=== PATIENT | male | born 1945 | race Caucasian/White ===

== ENCOUNTER 2020-03-18 08:40 | Day surgery (SDC) | payer MEDICARE, SELFPAY ==
[2020-03-18] VITALS (8 sets, daily range): BP systolic 90–105; BP diastolic 52–65; PULSE 63–83; RESP 12–21; TEMP 36.4–36.5; O2SAT 95–100; BMI 22.4
--- NOTE | 2020-03-18 | PATH_ITS ---
[facility] Accession Number: [id number] . 01 Material submitted: . PART A: colon - SMALL POLYP AT 85 CM PART B: colon - 25 CM SMALL POLYP PART C: colon - POLYP AT 15 CM . 01 Clinical history: . SCREENING COLONOSCOPY . 02 Diagnosis: A. Colon, Polyp at 85 cm, Biopsy: Tubular adenoma. . B. Colon, 25 cm, Small Polyp, Biopsy: Tubular adenoma. Prominent lymphoid aggregate. Please see comment. . C. Colon, Polyp at 15 cm, Biopsy: Tubular adenoma. MRV 03/21/2020 0926 Local . 02 Comment: B. Underlying the tubular adenoma at 25 cm is a prominent lymphoid aggregate. The patient's clinical history is noted. This case will be forwarded to a hematopathologist for review and their results reported as an addendum. . 02 Electronically signed: . Gabbi Pham MD, Pathologist NPI- [id number] . 01 Gross description: . Part A: SMALL POLYP AT 85 CM: Received in formalin is 1 fragment(s) of wade, soft tissue measuring 0.3 x 0.3 x 0.1 cm submitted entirely in 1 cassette(s) Part B: 25 CM SMALL POLYP: Received in formalin is 1 fragment(s) of wade, soft tissue measuring 0.2 x 0.2 x 0.2 cm submitted entirely in 1 cassette(s) Part C: POLYP AT 15 CM: Received in formalin is 1 fragment(s) of wade, soft tissue measuring 0.3 x 0.3 x 0.2 cm submitted entirely in 1 cassette(s) /QBJ 03/19/2020 0748 Local . 02 Pathologist provided ICD-10: D12.6 . 02 CPT . 627274, 192812, 194228 Performed at: 01 [facility] [address] [place] [address], [place], [place] [id number] MD Zbigniew Fox MD Phone: [phone] Performed at: 02 [facility] [address] [place], [place] [id number] MD Gabbi Pham MD Phone: [phone]
[2020-03-18] MEDS: SODIUM CHLORIDE 0.9% 1,000 ML 200 ML IV (09:00)
--- NOTE | 2020-03-18 10:06 | PM.HP.1 ---
History of Present Illness History of Present Illness Date Patient Seen: 03/18/20 Time Patient Seen: 10:06 Chief complaint: SCREENING COLONOSCOPY Narrative: This is a 74-year-old man with history of atrial fibrillation and DVTs. He is chronically on Coumadin, and has stopped his Coumadin 5 days ago. His INR is 1.2 this morning. He denies any symptoms of unexplained abdominal pain unexplained weight loss melena or hematochezia. He had a prior colonoscopy 5 years ago which he was told was normal. He believes he has some polyps found may be on a previous colonoscopy 5 years prior to that. He denies any primary relatives with colon cancer colon polyps. ROS: Thirteen system review is otherwise negative other than as mentioned below and in HPI. PE: GENERAL: Well groomed and cooperative. Appears stated age. Answers questions promptly and appropriately. Vital signs noted. HENT: Normocephalic, atraumatic. Hearing intact. EYES: Conjunctiva pink, sclera white, no periorbital swelling. CARDIOVASCULAR: Regular rate. No pedal edema. RESPIRATORY: Non-tachypneic, breathing comfortably on room air. GASTROINTESTINAL: Abdomen soft and non-distended GENITALURINARY: No flank tenderness. MUSCULOSKELETAL: Equal tone and mass bilaterally. SKIN: Warm, dry, soft, appropriate color for ethnicity. No other lesions, rashes, or wounds. NEURO: Alert and Oriented X 3. No gross sensory deficits, or cognitive issues. PSYCH: Appropriate affect and mood. Patient History Medical History Atrial fibrillation (Acute) DVT (deep venous thrombosis) (Acute) GI bleeding (Acute) History of thyroid nodule (Acute) Idiopathic cardiomyopathy (Acute) Surgical History H/O exploratory laparotomy (Acute) Family & Social History Family History Brother Age: 65 Gout Grandfather Heart disease Grandmother Diabetes mellitus Social History: household members spouse Tobacco & Substance use: Smoking Status Never smoker alcohol intake current alcohol intake frequency a few times a week Substance Use Type does not use Meds Home Medications and Allergies Home Medications Medication Instructions Recorded Confirmed Type metoprolol succinate 50 mg PO QDAY #30 ter 02/23/16 03/18/20 History atorvastatin [Lipitor] 20 mg PO HS #90 tab 01/28/17 03/18/20 Rx losartan 25 mg PO DAILY 12/07/19 03/18/20 History warfarin [Coumadin] 7.5 mg PO QDAY 01/04/20 03/18/20 History Allergies Allergy/AdvReac Type Severity Reaction Status Date / Time dextran 40 [DEXTRAN 40] Allergy Severe breathing Verified 03/18/20 08:53 difficulty Exam Vital Signs (past 8 hours): - 03/18/20 09:00 Temperature 97.5 F L Pulse Rate 80 Respiratory Rate 14 Blood Pressure 105/62 Pulse Oximetry 98 Oxygen Delivery Method Room Air Assessment & Plan Assessment and plan (1) History of colonic polyps: Status: None Assessment & Plan narrative: Risks and benefits of screening colonoscopy and possible polypectomy were discussed with the patient including risk of bleeding, perforation, need for additional procedures, risks of anesthesia. The patient desires to proceed with the colonoscopy procedure. COVID-19 COVID-19 status: Negative Result date/Date tested (Pos, Neg/Pending): 03/15/20 Time Spent With Patient Time with patient: 15-24 minutes Quality VTE Deep Vein Thrombosis/Pulmonary Embolism Present on Admission: No
--- NOTE | 2020-03-18 10:09 | P.OP.ENDO_ITS ---
Operative Date/Time/Diagnoses Date of procedure: 03/18/20 Time of procedure: 10:09 Pre-op diagnosis: Personal history of colon polyps Post-op diagnosis: other (Three small polyps that) Procedure & Clinicians Study performed: Colonoscopy Procedural sedation performed by the endoscopy Polypectomy x3 with cold forceps Same procedure as scheduled: Yes Indications: 74-year-old man with personal history of colon polyps Surgeon: Cathy Brandt Procedure Notes SCOAP/Timeout: Performed Procedure in detail: The patient was brought to the room and placed in left lateral decubitus position with all bony prominences padded. A time-out was performed and then the patient was given procedural sedation starting with 4 mg of Versed and 100 mcg of fentanyl. Vitals were monitored throughout the procedure and remained stable. Once adequately sedated, the procedure was begun. A rectal exam was performed revealing no abnormalities. The colonoscope was then introduced to the rectum and advanced to the cecum in the usual fashion. The cecum was identified by the appendiceal orifice, the mucosal tri- fold, and the ileocecal valve. The scope was then retracted while rotating side to side and examining each mucosal fold. On retraction of the scope 3 small polyps were found 185 cm 1 at 25 cm and 1 at 15 cm. All removed with cold forceps. At the conclusion of the procedure retroflexion was performed and small grade 1-2 internal hemorrhoids without stigmata of bleeding were seen. The scope was then withdrawn from the rectum the procedure was concluded. The patient tolerated the procedure well and was transferred to the PACU in stable condition. Scope withdrawal time: 12 Sedation minutes: 20 Findings: polyp (Three small polyp) Specimen(s): other (Polyp from 85 cm, 20 cm, 15 cm) Complications: none Impression: Three small polyps Post-procedure Recommendations: Other recommendation (Follow-up colonoscopy recommended will depend on pathology of polyps removed) Follow up: weeks Disposition: PACU
[2020-03-18] MEDS: MIDAZOLAM 5 MG/5 ML VIAL IV (10:12)
[2020-03-18] MEDS: fentaNYL 250 MCG/5 ML INJ IV (10:12)
--- NOTE | 2020-03-18 11:09 | SUR.PHASEII ---
Reviewed d\c instructionw with patient. Pt denies pain/nausea. Tolerating po.
== END 2020-03-18 11:35 | disposition home or self-care (01) ==
PROVIDERS: PCP Family Medicine; Referring Provider Family Medicine; Visit Provider Surgery
PROC: 0DJD8ZZ Inspection of Lower Intestinal Tract, Via Natural or Artificial Opening Endoscopic (ICD-10-PCS; CPT 45378; principal; 2020-03-18 10:00)
DX: Z12.11 Encounter for screening for malignant neoplasm of colon (principal); Z86.010 Personal history of colon polyps; K64.0 First degree hemorrhoids; D12.6 Benign neoplasm of colon, unspecified
CPT/HCPCS: 45380; 99152; J2250; J3010

== ENCOUNTER → 2021-01-20 13:57 | Outpatient (CLI) | payer MEDICARE, SELFPAY ==
--- NOTE | 2021-01-20 13:58 | DI.CT.S_ITS ---
PROCEDURE: CT ABDOMEN PELVIS W CON INDICATIONS: CLL, anus squamous cell carcinoma TECHNIQUE: After the administration of oral and intravenous contrast, axial sections were acquired from the lung bases to the pubic symphysis. Coronal and sagittal reformats were performed. For radiation dose reduction, the following was used: automated exposure control, adjustment of mA and/or kV according to patient size. COMPARISON:[facility], [place], ABDOMEN/PELVIS WITH CONTRAST, 08/17/2009, 9:27. FINDINGS: Image quality: Excellent. Lung bases: Coarse calcifications at the left lung base. Heart: No significant findings. ABDOMEN: Liver: Scattered punctate calcifications present throughout the liver. Gallbladder: Unremarkable. Biliary ducts: Unremarkable. Pancreas: Unremarkable. Spleen: The spleen is enlarged measuring 14.9 x 14.1 cm and contains several scattered punctate calcifications. Adrenal Glands: Unremarkable. Kidneys and Ureters: Unremarkable. Stomach and Bowel: Surgical changes at the GE junction. Stomach, small bowel, and colon are within normal limits. Along the right aspect of the anal opening, there is diffuse masslike thickening of the skin measuring about 2.1 x 4.2 cm, potentially patient's primary tumor. Peritoneum: No abnormal intraperitoneal fluid. No free air. Ventral Wall: No hernia. Abdominal Nodes: There are several bulky periaortic retroperitoneal nodes surrounding the renal vasculature, in the portacaval region, and in the peripancreatic region. Bulky adenopathy is seen distally in the retroperitoneum adjacent to the iliac bifurcation. Vessels: The aorta is normal caliber, mildly atherosclerotic, and tortuous. There is interruption of the inferior vena cava at the L2-3 level. Collateral vasculature is seen. PELVIS: Pelvic Organs: Unremarkable. Bladder: Unremarkable. Pelvic Nodes: Extensive left inguinal adenopathy. Enlarged right inguinal lymph node. Possible small lymph nodes in the perirectal region, though not well distinguished from extensive varicosities. Miscellaneous: Prominent left varicocele. Extensive presacral , perirectal varicosities Bones: Severe degenerative disc height loss at L5-S1. No suspicious bone lesions. IMPRESSION: 1. Development of splenomegaly and retroperitoneal adenopathy, likely recurrence of CLL. 2. Inguinal adenopathy and possible perirectal/presacral lymph nodes are present, though etiology is difficult to distinguish, anal squamous cell carcinoma versus CLL. 3. Probable primary squamous cell tumor at the right anal skin surface. Dictated by: Shirin Recio M.D. on 01/20/2021 at 16:36 Approved by: Shirin Recio M.D. on 01/20/2021 at 16:50
== END ==
PROVIDERS: PCP Family Medicine; Referring Provider Internal Medicine Hematology & Oncology; Visit Provider Internal Medicine Hematology & Oncology
DX: C91.10 Chronic lymphocytic leukemia of B-cell type not having achieved remission (principal); C44.520 Squamous cell carcinoma of anal skin; R59.1 Generalized enlarged lymph nodes
CPT/HCPCS: 74177; Q9967

== ENCOUNTER 2021-02-08 13:00 | Day surgery (SDC) | payer MEDICARE, SELFPAY ==
[2021-02-03 07:41] VITALS: BMI 22.5
[2021-02-08] VITALS (7 sets, daily range): BP systolic 104–110; BP diastolic 49–67; PULSE 71–88; RESP 12–18; TEMP 36.3–36.6; O2SAT 95–99; BMI 22.5
--- NOTE | 2021-02-08 | DI.RAD.S_ITS ---
PROCEDURE: XR CHEST 1V INDICATIONS: POST OP PORT PLACEMENT TECHNIQUE: One view of the chest was acquired. COMPARISON: None. FINDINGS: Surgical changes and devices: Port-A-Cath, tip of which projects to the superior vena cava. GE junction region clips. Lungs and pleura: Lungs are clear. No pleural effusions or pneumothorax. Mediastinum: Mediastinal contours appear normal. Calcified right hilar lymph nodes consistent with chronic granulomatous disease. Heart size is normal. Bones and chest wall: No suspicious bony lesions. Overlying soft tissues appear unremarkable. IMPRESSION: Port-A-Cath tip projects to superior vena cava. Dictated by: Eleno Schneider M.D. on 02/08/2021 at 16:18 Approved by: Eleno Schneider M.D. on 02/08/2021 at 16:18
[2021-02-08] MEDS: LACTATED RINGERS 1,000 ML 100 ML IV (14:27)
--- NOTE | 2021-02-08 14:35 | PM.HP.1 ---
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 He is about to begin radiation chemotherapy and I was asked plea support. Patient History Medical History Atrial fibrillation CLL (chronic lymphocytic leukemia) DVT (deep venous thrombosis) GI bleeding History of thyroid nodule Idiopathic cardiomyopathy Pneumonia Surgical History H/O exploratory laparotomy (1974) History of surgery (1972) History of surgery (1974) Family & Social History Family History Brother Age: 66 Gout Grandfather Heart disease Grandmother Diabetes mellitus Social History: household members spouse Tobacco & Substance use: Smoking Status Never smoker alcohol intake current alcohol intake frequency a few times a week Substance Use Type does not use Meds Home Medications and Allergies Home Medications Medication Instructions Recorded Confirmed Type metoprolol succinate 50 mg 50 mg PO QDAY #30 ter 02/23/16 02/08/21 History tablet,extended release 24 hr atorvastatin 20 mg tablet (Lipitor) 20 mg PO HS #90 tab 01/28/17 02/08/21 Rx losartan 25 mg tablet 25 mg PO DAILY 12/07/19 02/08/21 History warfarin 7.5 mg tablet (Coumadin) 7.5 mg PO QDAY 01/04/20 02/08/21 History fluorouracil 2.5 gram/50 mL See Rx Instructions .ROUTE 02/02/21 02/03/21 Rx intravenous solution .COMPLEX #1 device Allergies Allergy/AdvReac Type Severity Reaction Status Date / Time dextran 40 [DEXTRAN 40] Allergy Severe breathing Verified 03/18/20 08:53 difficulty Review of Systems Review of Systems Narrative: History of blood clots in the left leg pelvis. Lead to a PE. Chronically anticoagulated because of this and he also has atrial fibrillation. Stopped his warfarin several days ago and his INR is 1.1. No cough or cold. No chest pain at this time. No black or bloody bowel movements. Exam Vital Signs (past 8 hours): - 02/08/21 14:13 Temperature 97.8 F Pulse Rate 71 Respiratory Rate 18 Blood Pressure 104/63 Pulse Oximetry 99 Oxygen Delivery Method Room Air Narrative Exam Narrative: Cooperative no apparent distress. Eyes are nonicteric. Lungs are clear no rales or rhonchi. Heart despite history of AFib it is fairly regular rate and rhythm. He has a scar at the base of his neck from his thyroid procedure and another irregular scar which had stitches in it in the right base of his neck. He is unaware of what that is from. Patient has a midline scar in the abdomen from an exploratory laparotomy for bleeding. Alert and oriented x3. Speech rate and content are appropriate. Assessment & Plan Assessment and plan (1) Anal squamous cell carcinoma: Status: Acute Assessment & Plan narrative: Will place a Port-A-Cath for IV access for chemotherapy. I have discussed the procedure with the patient. Risks of bleeding, infection which is an ongoing risks, DVT which could cause swelling of the Arm or pulmonary embolism, lung collapse which might necessitate placement of a tube was also discussed. He appears to understand and wishes to proceed.
--- NOTE | 2021-02-08 14:40 | PM.PREOP ---
Pre-operative Note COVID-19 COVID-19 status: Negative Result date/Date tested (Pos, Neg/Pending): 02/06/21 Interval Note History & Physical reviewed/Exam performed by Physician: Yes Changes to H&P: No
[2021-02-08] MEDS: CEFAZOLIN 1 GM VIAL 2 GM IV (15:02)
--- NOTE | 2021-02-08 15:06 | SUR.OPER ---
Supine on padded OR bed, head on pillow, arms padded and tucked at sides, legs uncrossed, safety belt at thigh, tape over blanket over lower legs .
[2021-02-08] MEDS: HEPARIN 5,000 UNIT, SODIUM CHLORIDE 0.9% 50 ML IV (15:17)
[2021-02-08] MEDS: LIDOCAINE 1% 30 ML INJ (15:18)
--- NOTE | 2021-02-08 15:54 | SUR.PHASEI ---
Pt received to PACU at 1546. Airway patent, self maintained. Report received from MARIELA Velasco and Dr Berumen.
--- NOTE | 2021-02-08 16:01 | PM.OP.1 ---
Operative Date/Time/Diagnoses Date of procedure: 02/08/21 Time of procedure: 16:02 Pre-op diagnosis: Squamous cell cancer of the anus. Chronic lymphoma. Post-op diagnosis: same Procedure & Clinicians Procedure: Placement of Port-A-Cath. Same procedure as scheduled: Yes Indications: IV access for chemotherapy Surgeon: Wyatt Finney Click Yes if Unassisted: Yes Anesthesia Type: General Operative Notes Findings: No evidence of pneumothorax. Tip of catheter in the distal SVC. Closure Type: primary Specimen(s): none sent Prosthetic devices, grafts, tissues, transplants, or devices: Slim Port-A-Cath Estimated Blood Loss (mL): 7 Blood products transfused: none Procedure in detail: Patient was placed supine on the operating room table and underwent general LMA anesthesia. He was prepped and draped in the usual fashion. Local anesthetic was infiltrated in a field block fashion beneath the left clavicle. (patient is right-hand dominant) transverse incision made a pocket created overlying the pectoralis major. Needle was inserted into the subclavian vein and guidewire passed the needle removed. Using fluoroscopy the guidewire appeared to be going up into the neck. It was manipulated into the superior vena cava. The port and catheter was flushed with heparinized saline. It Was placed in the pocket and tapered to appropriate length. A dilator and introducer were passed over the guidewire observing with fluoroscopy. The guidewire and dilator removed leaving the introducer in place. Catheter was passed through the introducer which was then peeled away leaving the catheter in the SVC. The catheter was aspirated and flushed with heparinized saline without difficulty. It was secured to the chest wall with interrupted 2-0 silk suture. The subcu was closed with interrupted 3-0 Vicryl and skin was closed running 4-0 Vicryl subcuticular stitch and Steri-Strips. Dressing was applied the patient tolerated the procedure well. Complications: none Post-operative Condition: stable Disposition: PACU
[2021-02-08] MEDS: CODEINE/ACETAMINOPHEN 30/300 TABLET 1 TAB PO (16:03)
--- NOTE | 2021-02-08 16:21 | SUR.PHASEI ---
CXR done and seen by Dr Finney.
== END 2021-02-08 16:30 | disposition home or self-care (01) ==
PROVIDERS: PCP Family Medicine; Referring Provider Specialist; Visit Provider Specialist
PROC: (CPT 36561; principal; 2021-02-08 13:30)
DX: C21.0 Malignant neoplasm of anus, unspecified (principal); Z86.718 Personal history of other venous thrombosis and embolism; I48.91 Unspecified atrial fibrillation; Z79.01 Long term (current) use of anticoagulants
CPT/HCPCS: 36561; 71045; 76000; 85610; C1788; J0690; J1100; J1644; J2405; J2704; J3010

== ENCOUNTER → 2022-03-05 11:49 | Outpatient (CLI) | payer MEDICARE, SELFPAY ==
--- NOTE | 2022-03-05 11:52 | DI.CT.S_ITS ---
PROCEDURE: CT CHEST ABD PEL W CON INDICATIONS: anal squamous cell carcinoma TECHNIQUE: After the administration of oral and intravenous contrast, axial sections acquired from the supraclavicular neck to the pubic symphysis. Coronal and sagittal reformats were performed. For radiation dose reduction, the following was used: automated exposure control, adjustment of mA and/or kV according to patient size. COMPARISON:[facility], [place], PET NECK TO MID THIGH, 02/03/2021, 9:08. FINDINGS: Image quality: Excellent. CHEST: Lower Neck: Partially visualized enlarged cervical and supraclavicular lymph nodes as before Thyroid: Within normal limits Axillae: Lymphadenopathy, for example right axilla (axial image 21) measuring 16 mm in short axis, previously 15 mm. Chest Wall: Unremarkable. Lungs and Airways: Emphysema. Calcified granulomas. Scattered scarring/atelectasis. Tiny pulmonary nodules, for example left costophrenic angle series 6, image 166. Pleura: No pneumothorax or pleural effusions. Heart: Coronary artery calcifications. Thoracic Vessels: The aorta and pulmonary arteries demonstrate normal size. Mediastinum and Kamala: Lymphadenopathy, some which with calcifications for example pretracheal node measuring 8 mm on axial image 35, stable. Esophagus: Periesophageal clips. ABDOMEN: Liver: Hepatic granulomas. Gallbladder: Unremarkable Biliary ducts: Unremarkable. Pancreas: Unremarkable. Spleen: Granulomas. Adrenal Glands: Unremarkable. Kidneys and Ureters: Unremarkable. Stomach and Bowel: Decreased right anal mass. Compared to 02/03/2021. Mildly inflamed distal sigmoid and rectum. Peritoneum: Tonia mesentery and omentum as before, likely lymphomatosis. Ventral Wall: No hernia. Abdominal Nodes: Retroperitoneal lymphadenopathy, for example left paraortic node measuring 13 mm on axial image 96, previously 13 mm. Right retro psoas deposit again seen. Vessels: Mild aortoiliac atherosclerotic calcifications. PELVIS: Pelvic Organs: Bladder Bladder: Is underdistended, limiting evaluation. Pelvic Nodes: Lymphadenopathy, somewhat decreased, for example right external iliac node on axial image 123 measures 11 mm, previously 15 mm. There is also decrease inguinal lymphadenopathy. Miscellaneous: No inguinal hernias are seen. Bones: No suspicious osseous lesion. Spondylosis. IMPRESSION: Decreased bulk of right posterior anal mass compared to 02/03/2021. Lymphadenopathy in the chest, abdomen, and pelvis with suspected peritoneal lymphomatosis and retroperitoneal deposits. This is more compatible with CLL. Lymph nodes are either stable in size or slightly decreased compared to January 2021. Suspected infectious or inflammatory proctitis. Sequelae of granulomatous infection in the chest and abdomen Other incidental findings above, including tiny pulmonary nodules can be followed on subsequent imaging. Dictated by: Percy Bassett M.D. on 03/05/2022 at 15:22 Approved by: Percy Bassett M.D. on 03/06/2022 at 8:54
== END ==
PROVIDERS: PCP Family Medicine; Referring Provider Internal Medicine Hematology & Oncology; Visit Provider Internal Medicine Hematology & Oncology
DX: C91.10 Chronic lymphocytic leukemia of B-cell type not having achieved remission (principal); C21.0 Malignant neoplasm of anus, unspecified; R91.8 Other nonspecific abnormal finding of lung field; I25.10 Atherosclerotic heart disease of native coronary artery without angina pectoris; I70.0 Atherosclerosis of aorta
CPT/HCPCS: 71260; 74177; Q9967

== ENCOUNTER 2023-02-07 07:22 | Day surgery (SDC) | payer MEDICARE, SELFPAY ==
[2023-02-07] MEDS: LACTATED RINGERS 1,000 ML 84 ML IV (07:39)
[2023-02-07 07:44] VITALS: BP 126/71; PULSE 91; RESP 16; TEMP 36.3; O2SAT 97; BMI 49.6
--- NOTE | 2023-02-07 08:26 | P.HP_ITS ---
History of Present Illness History of Present Illness Date Patient Seen: 02/07/23 Time Patient Seen: 08:26 Chief complaint: Dx Colonoscopy Narrative: Gaston is a 77-year-old man who has a history of anal squamous cell carcinoma as well as a history of colon polyps. His last colonoscopy was in 2019. [facility] Medical History Atrial fibrillation CLL (chronic lymphocytic leukemia) DVT (deep venous thrombosis) GI bleeding History of thyroid nodule Idiopathic cardiomyopathy Pneumonia Surgical History H/O exploratory laparotomy (1974) History of surgery (1972) History of surgery (1974) Family History Brother Age: 68 Gout Grandfather Heart disease Grandmother Diabetes mellitus Social History household members: spouse Smoking Status: Never smoker alcohol intake: current substance use type: does not use Meds Home Medications and Allergies Home Medications Medication Instructions Recorded Confirmed Type metoprolol succinate 50 mg 50 mg PO QDAY ##30 02/23/16 02/07/23 History tablet,extended release 24 hr atorvastatin 20 mg tablet (Lipitor) 20 mg PO HS #90 tabs 01/28/17 02/26/22 Rx warfarin 7.5 mg tablet 7.5 mg PO DAILY 06/15/21 02/26/22 History levothyroxine 25 mcg tablet 25 mcg PO DAILY 10/08/22 02/07/23 History Allergies Allergy/AdvReac Type Severity Reaction Status Date / Time dextran 40 [DEXTRAN 40] Allergy Severe breathing Verified 02/07/23 07:33 difficulty Exam Vital Signs (past 8 hours): - 02/07/23 07:44 Temperature 97.3 F L Pulse Rate 91 H Respiratory Rate 16 Blood Pressure 126/71 Pulse Oximetry 97 Oxygen Delivery Method Room Air Oxygen Delivery Method Room Air Const General: healthy appearing Assessment & Plan Assessment and plan (1) History of anal cancer: Status: Acute (2) History of colonic polyps: Status: None Plan We will plan for a colonoscopy. Will also perform an anorectal exam. We reviewed the risks and benefits and he would like to proceed.
[2023-02-07 08:57] VITALS: BP 88/50; PULSE 99; RESP 17; TEMP 36.2; O2SAT 93
--- NOTE | 2023-02-07 09:01 | PM.OP.COLON ---
Operative Date/Time/Diagnoses Date of procedure: 02/07/23 Time of procedure: 09:01 Pre-op diagnosis: History of colon polyps and anal cancer Post-op diagnosis: same Procedure & Clinicians Study performed: Colonoscopy Same procedure as scheduled: Yes Surgeon: Jordan Moon Procedure Notes Procedure in detail: Surgeon: Jordan Moon MD Anesthesia: Neville Herman CRNA Procedure: The patient was brought to the endoscopy suite, placed in left lateral decubitus position. The patient was connected to monitoring devices. A time-out was performed. Sedation was administered. Once the patient was adequately sedated, a digital rectal exam was performed. Was no evidence of any recurrent malignancy in the anal canal. There was tightness induration of the anal canal consistent with his history of radiation and anal cancer. The scope was then inserted and advanced to the cecum where the appendiceal orifice was identified and photographed. The terminal ileum was intubated and no abnormalities were found. The scope was then slowly withdrawn over greater than 6 minutes. The mucosa was thoroughly inspected. No colon abnormalities were seen. The scope was retroflexed in the rectum. No abnormalities were seen. The scope was straightened and removed. The patient was awakened and brought to recovery. Scope withdrawal time: 8 minutes Sedation time: 13 minutes EBL: 0 Findings: Fibrosis around the anal canal consistent with history of radiation treatment Post-procedure Disposition: PACU
[2023-02-07 09:02] VITALS: BP 85/51; PULSE 90; RESP 14; O2SAT 95
[2023-02-07 09:06] VITALS: BP 88/56; PULSE 95; RESP 14; O2SAT 97
[2023-02-07 09:12] VITALS: BP 106/62; PULSE 84; RESP 16; TEMP 36.2; O2SAT 99
== END 2023-02-07 09:52 | disposition home or self-care (01) ==
PROVIDERS: PCP Family Medicine; Referring Provider Surgery; Visit Provider Surgery
PROC: 0DJD8ZZ Inspection of Lower Intestinal Tract, Via Natural or Artificial Opening Endoscopic (ICD-10-PCS; CPT 45378; principal; 2023-02-07 08:30)
DX: Z86.010 Personal history of colon polyps (principal); Z85.040 Personal history of malignant carcinoid tumor of rectum; I48.91 Unspecified atrial fibrillation; Z79.01 Long term (current) use of anticoagulants
CPT/HCPCS: 45378; 85610; J2704

== ENCOUNTER → 2023-05-13 13:26 | Outpatient (CLI) | payer MEDICARE, SELFPAY ==
--- NOTE | 2023-05-13 13:28 | DI.CT.S_ITS ---
PROCEDURE: CT CHEST ABD PEL W CON INDICATIONS: CLL and anus SCC TECHNIQUE: After the administration of oral and intravenous contrast, axial sections acquired from the supraclavicular neck to the pubic symphysis. Coronal and sagittal reformats were performed. For radiation dose reduction, the following was used: automated exposure control, adjustment of mA and/or kV according to patient size. COMPARISON: [facility], CT, CT CHEST ABD PEL W CON, 03/05/2022, 13:45. FINDINGS: Image quality: Excellent. CHEST: Lower Neck: No enlarged lymph nodes. Thyroid: Within normal limits. Axillae: Increased axillary adenopathy. For instance, the right level 1 lymph node measures 2.6 centimeter short axis, previously 2.1 centimeter (series 2, image 21). Chest Wall: Unremarkable. Lungs and Airways: Stable calcified and noncalcified pulmonary nodules. Pleura: No pneumothorax or pleural effusions. Heart: Heart size is normal. No pericardial effusion. Thoracic Vessels: The aorta and pulmonary arteries demonstrate normal size. Mediastinum and [place]ala: Enlarged mediastinal lymph nodes, including the 1.2 centimeter right lower paratracheal node, previously 0.8 centimeter (series 2, image 30). Calcified hilar and mediastinal nodes. Esophagus: No wall thickening. No hiatal hernia. ABDOMEN: Liver: Granulomas.. Gallbladder: Unremarkable. Biliary ducts: Unremarkable. Pancreas: Unremarkable. Spleen: Markedly enlarged, increased from prior. This measures 15.8 x 6.7 x 15.9 centimeters, previously 13.2 x 5.2 x 13.4 centimeter. Calcified granuloma. Adrenal Glands: Unremarkable. Kidneys and Ureters: Unremarkable. Stomach and Bowel: No measurable and 0 mass on today's exam. Colonic diverticulosis without evidence of diverticulitis. Peritoneum: No abnormal intraperitoneal fluid. No free air. Ventral Wall: No hernia. Abdominal Nodes: Confluent retroperitoneal adenopathy, increased in bulk compared with prior. Right retro psoas deposits also present, similar to prior. Vessels: Aorta and inferior vena cava are normal in size. PELVIS: Pelvic Organs: Unremarkable. Bladder: Unremarkable. Pelvic Nodes: Growing pelvic lymph nodes. For instance, the 2.1 centimeter left common iliac chain node previously measured 1.8 centimeter (series 2, image 99). Miscellaneous: No inguinal hernias are seen. Bones: Unremarkable. IMPRESSION: 1. No measurable and mass on today's exam 2. Significant interval increase in size of the axillary, retroperitoneal and pelvic adenopathy. Additionally, the spleen has increased in size. Findings are concerning for progressive lymphoma. Dictated by: Stanley Manzano M.D. on 05/13/2023 at 16:39 Approved by: Stanley Manzano M.D. on 05/13/2023 at 16:48
== END ==
PROVIDERS: PCP Family Medicine; Referring Provider Internal Medicine Hematology & Oncology; Visit Provider Internal Medicine Hematology & Oncology
DX: D47.9 Neoplasm of uncertain behavior of lymphoid, hematopoietic and related tissue, unspecified (principal); C21.0 Malignant neoplasm of anus, unspecified; R59.0 Localized enlarged lymph nodes
CPT/HCPCS: 71260; 74177; Q9967

== ENCOUNTER 2024-09-29 10:54 | Day surgery (SDC) | payer MEDICARE, OTHER, SELFPAY ==
[2024-09-22 15:07] VITALS: BMI 22.6
--- NOTE | 2024-09-29 | DI.RAD.S_ITS ---
PROCEDURE: XR CHEST 1V INDICATIONS: POST OP PORT A CATH TECHNIQUE: One view of the chest was acquired. COMPARISON: [facility], CR, XR CHEST 1V, 09/29/2024, 12:29. FINDINGS: Surgical changes and devices: Right Port-A-Cath terminates in the expected location of the cavoatrial junction. Lines and tubes overlie the patient's chest. Surgical clips overlie the region of the gastroesophageal junction. Lungs and pleura: Lungs are clear. No pleural effusions or pneumothorax. Mediastinum: Mediastinal contours appear normal. Heart size is normal. There are atherosclerotic vascular calcifications. Bones and chest wall: No suspicious bony lesions. Overlying soft tissues appear unremarkable. IMPRESSION: No acute cardiopulmonary abnormality is seen. Right Port-A-Cath in satisfactory position Dictated by: Salvatore Chapman M.D. on 09/29/2024 at 17:11 Approved by: Salvatore Chapman M.D. on 09/29/2024 at 17:12
--- NOTE | 2024-09-29 | DI.RAD.S_ITS ---
PROCEDURE: XR CHEST 1V INDICATIONS: PORT A CATH TECHNIQUE: One view of the chest was acquired. COMPARISON: [facility], CR, XR CHEST 1V, 02/08/2021, 15:49. FINDINGS: Surgical changes and devices: Intraoperative views during Port-A-Cath placement with tip projecting over the superior vena cava. IMPRESSION: Limited intraoperative views during Port-A-Cath placement with tip projecting over the superior vena cava. Dictated by: Lauri Garcia M.D. on 09/29/2024 at 15:54 Approved by: Lauri Garcia M.D. on 09/29/2024 at 15:55
[2024-09-29] MEDS: ACETAMINOPHEN 325 MG TABLET 975 MG PO (11:34)
[2024-09-29] MEDS: LACTATED RINGERS 1,000 ML 42 ML IV (11:35)
[2024-09-29 11:39] VITALS: BMI 21.3
--- NOTE | 2024-09-29 11:40 | P.HP_ITS ---
History of Present Illness History of Present Illness Date Patient Seen: 09/29/24 Time Patient Seen: 11:41 Chief complaint: Port placement Narrative: Ankur is a 79-year-old man who presents with recurrent anal cancer. A biopsy was performed by the colorectal surgeon in [place]. A port has been requested. [facility] Medical History (Updated 10/08/22 @ 13:59 by Stefania Jacobs MD) CLL (chronic lymphocytic leukemia) Pneumonia History of thyroid nodule GI bleeding DVT (deep venous thrombosis) Idiopathic cardiomyopathy Atrial fibrillation Surgical History (Updated 09/22/24 @ 15:15 by Thalia Post RN) History of removal of Port-a-Cath (10/27/21) Hx of colonoscopy (02/07/23) History of surgery (02/08/21) History of surgery (1974) History of surgery (1972) H/O exploratory laparotomy (1974) Family History Brother Age: 69 Gout Grandfather Heart disease Grandmother Diabetes mellitus Social History household members: spouse Smoking Status: Never smoker alcohol intake: current substance use type: does not use Meds Home Medications and Allergies Home Medications Medication Instructions Recorded Confirmed Type metoprolol succinate 50 mg 50 mg PO QDAY ##30 02/23/16 09/29/24 History tablet,extended release 24 hr atorvastatin 20 mg tablet (Lipitor) 20 mg PO HS #90 tabs 01/28/17 09/29/24 Rx levothyroxine 25 mcg tablet 75 mcg PO DAILY 07/30/24 09/29/24 History rivaroxaban 20 mg tablet (Xarelto) 20 mg PO DAILY 07/30/24 09/29/24 History oxycodone-acetaminophen 5 mg-325 1 - 2 tab PO Q4H PRN moderate pain 09/29/24 09/29/24 History mg tablet Allergies Allergy/AdvReac Type Severity Reaction Status Date / Time dextran 40 [DEXTRAN 40] Allergy Severe breathing Verified 09/29/24 11:29 difficulty Exam Const General: healthy appearing Assessment & Plan Assessment and plan (1) Anal squamous cell carcinoma: Status: Chronic Plan We discussed the risks and benefits of a Port-A-Cath placement for chemotherapy and he would like to proceed. Time-Based Coding :: [TOTAL MINUTES] spent with patient and on the chart (including review of chart, obtaining history, exam, reviewing outside data, placing orders, documenting exam and treatment plan, and counseling patient) on [DATE]. [employer] Document charge(s): No
[2024-09-29 11:52] VITALS: BP 118/75; PULSE 82; RESP 16; TEMP 35.9; O2SAT 95
[2024-09-29] MEDS: CEFAZOLIN 2 GM/100 ML PREMIX 100 ML IV (12:00)
--- NOTE | 2024-09-29 12:18 | SUR.OPER ---
Supine on padded OR bed, head on pillow, arms padded and tucked at sides, legs uncrossed, safety belt at thigh, tape over blanket over lower legs .
[2024-09-29] MEDS: BUPIVACAINE 0.5% W/ EPI (PF) 30 ML VIAL INJ (12:25)
[2024-09-29] MEDS: SODIUM CHLORIDE 0.9% FLUSH 10 ML IV (12:27)
[2024-09-29 13:08] VITALS: BP 103/61; PULSE 77; RESP 12; TEMP 36.3; O2SAT 97
[2024-09-29 13:14] VITALS: BP 113/70; PULSE 76; RESP 12; TEMP 36.3; O2SAT 97
[2024-09-29 13:19] VITALS: BP 107/64; PULSE 70; RESP 12; TEMP 36.2; O2SAT 97
--- NOTE | 2024-09-29 13:21 | PM.OP.1 ---
Operative Date/Time/Diagnoses Date of procedure: 09/29/24 Time of procedure: 13:21 Pre-op diagnosis: Recurrent anal cell carcinoma Post-op diagnosis: same Procedure & Clinicians Procedure: Port-A-Cath Same procedure as scheduled: Yes Surgeon: Jordan Moon Click Yes if Unassisted: Yes Operative Notes Procedure in detail: The patient was brought to the operating room, placed on the table in the supine position with the arms tucked. Ancef was administered. Anesthesia was induced via LMA. A time-out was performed. The right chest and neck were prepped and draped in the usual fashion. An ultrasound was used to identify the right internal jugular vein. The vein was noted to be patent. An image was saved and printed and placed in the chart. The right internal jugular vein was accessed via the Seldinger technique under ultrasound guidance. The guidewire was inserted into the superior vena cava. C-arm was used to confirm proper position of the guidewire in the superior vena cava and no ectopy was noted. The needle was removed and the wire was clamped to the drape. Next, a port pocket was created just inferior to the medial clavicle using a 15 blade scalpel. Dissection was carried down to the pectoral fascia. A subcutaneous pocket was created using a combination of cautery and blunt dissection. Next, the port which was primed with injectable saline, was secured to the fascia with 3-0 PDS sutures left untied and clamped. The neck incision was extended with an 11 blade scalpel to approximately 5 mm. The dilator and peel-away sheath were inserted over the wire without resistance. The catheter was passed from the neck incision to the chest incision in the subcutaneous tissue using the tunnelling device. The wire and dilator were then removed and the catheter inserted through the peel-away sheath to deliver it into the superior vena cava. The depth of the device was checked using the C-arm and the tip of the device was noted to be in the distal superior vena cava. The exterior portion of the catheter was then trimmed and attached to the port using the strain relief collar. A final image showed good position of the catheter with no kinks. The port was then tucked into the subcutaneous pocket and the sutures were tied to secure the device. The port was then accessed using the French needle and it was noted that the device disha and flushed easily without resistance. Approximately 4 mL of heparinized saline were injected into the device. The skin incisions were closed with 3-0 Vicryl and 4-0 Monocryl. Steri-Strips were applied patient was awakened and brought to recovery room EBL: 5 mL Ultrasound: The right internal jugular vein was patent. The right carotid artery was visualized adjacent to the vein. Venipuncture was visualized in real-time using the ultrasound. Fluoroscopy: The device was positioned appropriately with the distal end of the catheter near the atriocaval junction. There were no kinks in the catheter. Post-operative Condition: stable Disposition: PACU
[2024-09-29 13:25] VITALS: BP 116/58; PULSE 73; RESP 14; TEMP 36.2; O2SAT 98
[2024-09-29 13:50] VITALS: BP 117/60; PULSE 74; RESP 16; TEMP 36.2; O2SAT 98
== END 2024-09-29 14:00 | disposition home or self-care (01) ==
PROVIDERS: PCP Family Medicine; Referring Provider Surgery; Visit Provider Surgery
PROC: (CPT 36561; principal; 2024-09-29 12:45)
DX: C21.0 Malignant neoplasm of anus, unspecified (principal)
CPT/HCPCS: 36561; 71045; 76000; C1788; J0690; J1644; J2405; J2704